=== PATIENT | male | born 2000 | race Two or more races ===

== ENCOUNTER 2022-04-03 14:41 | Emergency (ER) | payer MEDICAID ==
[~2022-04-03] VITALS: Ht 157.5 cm; Wt 63.2 kg
[2022-04-03 16:23] VITALS: BP 137/58
[2022-04-03] MEDS ORDERED: TETANUS-DIPTH-ACEL PERTUSSIS 0.5ML SYR Tdap IM ONE (17:00)
[2022-04-03] MEDS ORDERED: ACETAMINOPHEN 500 MG TAB PO ONE (17:00)
[2022-04-03] MEDS ORDERED: CEPH-510 PO (17:20)
[2022-04-03] MEDS ORDERED: TETRACAINE HCL 0.5% OPTH(EYE) SOLN 4ML RIGHTEYE ONE (17:30)
[2022-04-03] MEDS ORDERED: NEOMYCIN-BACITRACIN-POLYM UNITDOSE PKG TOP OINT TOP ONE (17:30)
[2022-04-03] MEDS ORDERED: FLUORESCEIN SOD OPTH TEST STRIP RIGHTEYE ONE (17:45)
[2022-04-03] MEDS ORDERED: ERY05OO OP (17:58)
== END 2022-04-03 18:11 | disposition home or self-care (01) ==
LOC: ER 14:41
DX: S01.05XA Open bite of scalp, initial encounter (principal); S05.02XA Injury of conjunctiva and corneal abrasion without foreign body, left eye, initial encounter; J45.909 Unspecified asthma, uncomplicated; Z90.49 Acquired absence of other specified parts of digestive tract; W54.0XXA Bitten by dog, initial encounter; Y93.89 Activity, other specified; Y92.89 Other specified places as the place of occurrence of the external cause; Y99.8 Other external cause status
CPT/HCPCS: 90471; 90715